=== PATIENT | female | born 1970 | race Caucasian/White ===

== ENCOUNTER 2016-10-19 09:00 | Emergency (ER) | payer MEDICAID ==
[2016-10-19 09:21] VITALS: BP 143/97
[2016-10-19] MEDS ORDERED: HYDROmorphone 1 MG/ML Syringe IVPUSH ONE (09:48)
[2016-10-19] MEDS ORDERED: Ondansetron 4 MG/2 ML SDV IVPUSH PRN (09:54)
[2016-10-19] MEDS ORDERED: Ciprofloxacin 500 MG Tab PO ONE (10:00)
[2016-10-19 10:02] LABS: CHLORIDE,CL 105 mEq/L (98-106); SODIUM,NA 141 mEq/L (136-145)
[2016-10-19] MEDS ORDERED: cefTRIAXone 1 GM Vial IVPUSH ONE ×2 (10:50)
[2016-10-19] MEDS ORDERED: Take Home: Ciprofloxacin 500 MG Tab, 2 Tab Pack PO ONE (10:50)
--- NOTE | 2016-10-19 10:58 | EDM.PDOC ---
ED HPI GENERAL MEDICAL PROBLEM - General Chief Complaint: General Stated Complaint: groin/leg pain Time Seen by Provider: 10/19/16 09:40 Source of Information: Reports: Patient History Limitations: Reports: No Limitations - History of Present Illness INITIAL COMMENTS - FREE TEXT/NARRATIVE: Patient presents to ER with left lower abdominal pain that started yesterday, but has gotten much worse today. Onset: Gradual Duration: Day(s): Quality: Reports: Sharp, Stabbing Severity: Moderate Improves with: Reports: Medication Worsens with: Reports: None Groin Pain Score (Numeric/FACES): 8 - Related Data Allergies Allergy/AdvReac Type Severity Reaction Status Date / Time No Known Allergies Allergy Verified 10/19/16 09:48 Home Meds: Home Meds . 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: Endometrial Ablation - Past Surgical History GI Surgical History: Reports: Cholecystectomy Social & Family History - Tobacco Use Smoking Status *Q: Current Every Day Smoker Years of Tobacco use: 20 Packs/Tins Daily: 0.5 - Caffeine Use Caffeine Use: Reports: None - Recreational Drug Use Recreational Drug Use: No ED ROS GENERAL - Review of Systems Review Of Systems: See Below Constitutional: Reports: No Symptoms, Weakness HEENT: Reports: No Symptoms Respiratory: Reports: No Symptoms Cardiovascular: Reports: No Symptoms GI/Abdominal: Reports: No Symptoms : Reports: Urinary Retention Musculoskeletal: Reports: No Symptoms Skin: Reports: No Symptoms Neurological: Reports: No Symptoms Psychiatric: Reports: No Symptoms Hematologic/Lymphatic: Reports: No Symptoms Immunologic: Reports: No Symptoms ED EXAM, GENERAL - Physical Exam Exam: See Below Exam Limited By: No Limitations General Appearance: Alert, WD/WN Ears: Normal External Exam Nose: Normal Inspection Throat/Mouth: Normal Inspection Head: Atraumatic Neck: Normal Inspection Respiratory/Chest: No Respiratory Distress Cardiovascular: Normal Peripheral Pulses GI/Abdominal: Soft, No Distention, Tender (Female) Exam: Normal External Exam Rectal (Female) Exam: Normal Exam Back Exam: Normal Inspection Extremities: Normal Inspection Neurological: Alert, Oriented Skin Exam: Warm, Dry Course - Vital Signs Last Recorded V/S: Last Vital Signs Temp 98.4 F 10/19/16 09:18 Pulse 79 10/19/16 09:18 Resp 18 07/09/17 09:18 BP 143/97 H 07/09/17 09:18 Pulse Ox 94 L 10/19/16 09:18 - Orders/Labs/Meds Orders: Active Orders 24 hr Category Date Time Status Ondansetron [Zofran] Med 10/19/16 09:54 Active 4 mg IVPUSH Q6H PRN Medication Orders Ondansetron HCl (Zofran) 4 mg IVPUSH Q6H PRN PRN Reason: Nausea Last Admin: 10/19/16 10:01 Dose: 4 mg Labs: Laboratory Tests 10/19/16 10/19/16 10/19/16 Range/Units 09:21 09:21 10:36 WBC 12.6 H (5.0-10.0) 10^3/uL RBC 5.38 (4.00-5.50) 10^6/uL Hgb 15.8 (12.0-16.0) g/dL Hct 49.4 H (37.0-47.0) % MCV 91.8 (82.0-94.0) fL MCH 29.4 (27.0-32.0) pg MCHC 32.0 L (33.0-38.0) g/dL RDW Coeff of Brian 13.9 (11.0-15.0) % Plt Count 342 (150-400) 10^3/uL Neut % (Auto) 69.5 (35-85) % Lymph % (Auto) 19.0 (10-55) % [place] % (Auto) 7.1 (0-16) % Eos % (Auto) 4.2 (0-5) % Baso % (Auto) 0.2 (0-3) % Neut # (Auto) 8.72 H (1.80-7.00) 10^3/uL Lymph # (Auto) 2.39 (1.00-4.80) 10^3/uL [place] # (Auto) 0.89 H (0.00-0.80) 10^3/uL Eos # (Auto) 0.53 H (0.00-0.45) 10^3/uL Baso # (Auto) 0.03 10^3/uL Sodium 141 (136-145) mEq/L Potassium 4.1 (3.5-5.0) mEq/L Chloride 105 (98-106) mEq/L Carbon Dioxide 29 (21-32) mmol/L BUN 9 (7-18) mg/dL Creatinine 0.8 (0.6-1.0) mg/dL Est Cr Clr Drug Dosing TNP Estimated GFR (MDRD) > 60 (>=60) mL/min Glucose 122 H (75-99) mg/dL Calcium 8.8 (8.4-10.1) mg/dL Total Bilirubin 0.3 (0.0-1.0) mg/dL AST 13 L (15-37) U/L ALT 18 (12-78) U/L Alkaline Phosphatase 78 (46-116) U/L Total Protein 7.8 (6.4-8.2) g/dL Albumin 3.6 (3.4-5.0) g/dL Urine Color Dark yellow (YELLOW) Urine Appearance Clear (CLEAR) Urine pH 5.5 (4.5-8.0) Ur Specific [place] 1.033 H (1.003-1.020) Urine Protein 100 H (NEGATIVE) mg/dL Urine Glucose (UA) Negative (NEGATIVE) mg/dL Urine Ketones Negative (NEGATIVE) mg/dL Urine Occult Blood Large H (NEGATIVE) Urine Nitrite Negative (NEGATIVE) Urine Bilirubin Negative (NEGATIVE) Urine Urobilinogen 0.2 (0.2-1.0) EU/dL Ur Leukocyte Esterase Small H (NEGATIVE) Urine RBC 10-20 H (0-5) /HPF Urine WBC 5-10 H (0-5) /HPF Ur Squamous Epith Cells Few H (NOT SEEN) /HPF Urine Bacteria Occasional H (NOT SEEN) /HPF Urine Mucus Moderate H (NOT SEEN) /HPF Meds: Medications Generic Name Dose Route Start Last Admin Trade Name Freq PRN Reason Stop Dose Admin Ondansetron HCl 4 mg 10/19/16 09:54 10/19/16 10:01 Zofran IVPUSH 4 mg Q6H PRN Administration Nausea Discontinued Medications Generic Name Dose Route Start Last Admin Trade Name Fregurpreet PRN Reason Stop Dose Admin Ceftriaxone Sodium 1 gm 10/19/16 10:50 Rocephin IVPUSH 10/19/16 10:51 ONETIME ONE Ciprofloxacin 1 packet 10/19/16 10:50 Take Home: Ciprofloxacin 500 Mg, 2 Tab Pack PO 10/19/16 10:51 ONETIME ONE Hydromorphone HCl 0.5 mg 10/19/16 09:48 10/19/16 10:03 Dilaudid IVPUSH 10/19/16 09:49 0.5 mg ONETIME ONE Administration Departure - Departure Time of Disposition: 10:56 Disposition: Home, Self-Care 01 Preliminary Cause of *Q: Cardiac Arrest Clinical Impression: UTI (urinary tract infection) - Discharge Information Forms: ED Department Discharge Additional Instructions: Drink plenty of fluids. Take your medications as prescribed. Follow up with your regular doctor this week as needed. - My Orders Last 24 Hours: My Active Orders 10/19/16 09:54 Ondansetron [Zofran] 4 mg IVPUSH Q6H PRN - Assessment/Plan Last 24 Hours: My Active Orders 10/19/16 09:54 Ondansetron [Zofran] 4 mg IVPUSH Q6H PRN
== END 2016-10-19 11:23 | disposition home or self-care (01) ==
LOC: CC.ED 09:00
DX: N39.0 Urinary tract infection, site not specified (principal); F17.210 Nicotine dependence, cigarettes, uncomplicated; Z90.49 Acquired absence of other specified parts of digestive tract
CPT/HCPCS: 36415; 80053; 81001; 85025; 96374; 96375; 99283; A9270; J0696; J1170; J2405